=== PATIENT | male | born 1970 | race Caucasian/White ===

== ENCOUNTER 2016-11-27 16:03 | Inpatient (IN) | payer SELFPAY ==
[~2016-11-27] VITALS: Ht 182.9 cm; Wt 81.6 kg
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
[2016-11-27] MEDS ORDERED: Lidocaine 1% 10mg/ml/Epi 0.005mg/ml 30ml vial INJ ONE (16:11)
[2016-11-27] MEDS ORDERED: Morphine Sulfate 4mg/ml Inj ONE (16:15)
[2016-11-27] MEDS ORDERED: ceFAZolin sod 1 GM in NS 55 ML IVPB ONE (16:15)
[2016-11-27] MEDS ORDERED: Morphine Sulfate 4mg/ml Inj IVP ONE (16:30)
[2016-11-27 16:32] VITALS: BP 137/88
[2016-11-27 16:49] LABS: BASOPHILS % (AUTO) 2.2 % (0.0-2.0); EOSINOPHILS % (AUTO) 2.8 % (0.0-3.0); LYMPHOCYTES % (AUTO) 30.5 % (20.0-45.0); MEAN CORPUSCULAR HEMOGLOBIN 27.7 PG (27.0-31.0); MEAN CORPUSCULAR HGB CONC 32.7 G/DL (32.0-36.0); MEAN CORPUSCULAR VOLUME 85 FL (80-99); MEAN PLATELET VOLUME 7.4 FL (6.5-10.1); MONOCYTES % (AUTO) 10.8 % (1.0-10.0); NEUTROPHILS % (AUTO) 53.7 % (45.0-75.0); PLATELET COUNT 216 K/UL (150-450); RED BLOOD COUNT 4.43 M/UL (4.70-6.10); RED CELL DISTRIBUTION WIDTH 13.2 % (11.6-14.8); WHITE BLOOD COUNT 5.6 K/UL (4.8-10.8)
[2016-11-27] MEDS ORDERED: Lidocaine 1% Plain 30 ml INJ ONE (17:00)
[2016-11-27 17:02] LABS: INR 1.1 (0.9-1.1); PROTHROMBIN TIME 10.7 SEC (9.30-11.50)
[2016-11-27 17:10] LABS: ALANINE AMINOTRANSFERASE 13 U/L (3-41); ALBUMIN/GLOBULIN RATIO 1.5 (1.0-2.7); ANION GAP 14 (5-15); ASPARTATE AMINO TRANSFERASE 22 U/L (5-40); CALCIUM 9.3 mg/dL (8.6-10.2); CARBON DIOXIDE 26 mEQ/L (20-30); CHLORIDE 98 mEQ/L (98-107); GLOMERULAR FILTRATION RATE > 60 mL/min (>60); HEMOLYSIS 8; POTASSIUM 4.1 mEQ/L (3.4-4.9); SODIUM 138 mEQ/L (135-145); TOTAL PROTEIN 6.8 g/dL (6.6-8.7)
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
[2016-11-27 18:38] VITALS: BP 134/84
[2016-11-27] MEDS ORDERED: NKM (18:52)
[2016-11-27] MEDS ORDERED: Miralax 17gm pkt ORAL PRN (19:30)
[2016-11-27] MEDS ORDERED: Morphine Sulfate 2mg/ml Inj IVP PRN (19:30)
[2016-11-27] MEDS ORDERED: Zolpidem 5mg tab ORAL PRN (19:30)
[2016-11-27] MEDS ORDERED: Mylanta II UD 30ml ORAL PRN (19:30)
[2016-11-27] MEDS ORDERED: LORazepam Inj 2mg/ml 1ml IV PRN (19:30)
[2016-11-27 20:04] VITALS: BP 139/87
[2016-11-27 20:30] VITALS: BP 146/87
[2016-11-27] MEDS: ceFAZolin sod 1 GM in D5W 55 ML IVPB SCH (20:46)
[2016-11-27] MEDS ORDERED: Morphine Sulfate 4mg/ml Inj IM PRN (21:15)
[2016-11-27] MEDS: Heparin 5000 units/ml inj SUBQ SCH (21:35)
[2016-11-27] MEDS ORDERED: Morphine Sulfate 4mg/ml Inj IVP PRN (22:00)
[2016-11-27] MEDS ORDERED: Norco 5mg/325mg tab ORAL PRN (22:30)
[2016-11-28] VITALS (12 sets, daily range): BP systolic 123–154; BP diastolic 64–95
[2016-11-28] MEDS: ceFAZolin sod 1 GM in D5W 55 ML IVPB SCH ×2 (04:36→17:37)
[2016-11-28] MEDS ORDERED: Bacitracin 50000 Units Vial ONE (07:34)
[2016-11-28 07:56] LABS: BASOPHILS % (AUTO) 1.2 % (0.0-2.0); EOSINOPHILS % (AUTO) 2.9 % (0.0-3.0); LYMPHOCYTES % (AUTO) 32.8 % (20.0-45.0); MEAN CORPUSCULAR HGB CONC 32.8 G/DL (32.0-36.0); MEAN CORPUSCULAR VOLUME 85 FL (80-99); MEAN PLATELET VOLUME 7.4 FL (6.5-10.1); MONOCYTES % (AUTO) 11.3 % (1.0-10.0); NEUTROPHILS % (AUTO) 51.7 % (45.0-75.0); PLATELET COUNT 224 K/UL (150-450); RED BLOOD COUNT 4.39 M/UL (4.70-6.10); RED CELL DISTRIBUTION WIDTH 13.2 % (11.6-14.8); WHITE BLOOD COUNT 6.9 K/UL (4.8-10.8)
[2016-11-28] MEDS ORDERED: LR 1000ml ONE (08:00)
[2016-11-28] MEDS ORDERED: Propofol 10mg/ml 20ml IV ONE (08:00)
[2016-11-28] MEDS ORDERED: Lidocaine 1% MPF 10mg/ml 5ml ONE (08:00)
[2016-11-28] MEDS ORDERED: Sterile Water Irrig 1000ml IRRIG ONE (08:00)
[2016-11-28] MEDS ORDERED: Midazolam 2mg/2ml Inj ONE (08:00)
[2016-11-28] MEDS ORDERED: Alfentanil 2ml Inj ONE (08:00)
[2016-11-28] MEDS ORDERED: NS Irrig 1000ml ONE (08:00)
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
[2016-11-28 08:19] LABS: ALANINE AMINOTRANSFERASE 11 U/L (3-41); ALBUMIN/GLOBULIN RATIO 1.5 (1.0-2.7); ANION GAP 10 (5-15); ASPARTATE AMINO TRANSFERASE 18 U/L (5-40); CALCIUM 8.6 mg/dL (8.6-10.2); CARBON DIOXIDE 28 mEQ/L (20-30); CHLORIDE 104 mEQ/L (98-107); CREATININE 1.1 mg/dL (0.7-1.2); GLOMERULAR FILTRATION RATE > 60 mL/min (>60); HEMOLYSIS 5; SODIUM 142 mEQ/L (135-145); TOTAL PROTEIN 6.2 g/dL (6.6-8.7)
[2016-11-28] MEDS ORDERED: HYDROmorphone 1mg/ml Carpuject SUBQ PRN (08:30)
--- NOTE | 2016-11-28 08:35 | Anethesia Preoperative Eval ---
Anesthesia Pre-op PMH/ROS General Date of Evaluation: Nov 28, 2016 Time of Evaluation: 08:06 Anesthesiologist: Jennifer ASA Score: ASA 2 - Emergency Mallampati Score Class I : Soft palate, uvula, fauces, pillars visible Class II: Soft palate, uvula, fauces visible Class III: Soft palate, base of uvula visible Class IV: Only hard plate visible Mallampati Classification: Class II Surgeon: Ric Diagnosis: L Knee Infection Surgical Procedure: I and D L Knee Anesthesia History: none Family History: no anesthesia problems Allergies: Coded Allergies: No Known Allergies (Unverified , 11/27/16) Medications: see eMAR Past Medical History Hematology/Immune: Reports: anemia PSxH Narrative: L Tibial Fx Anesthesia Pre-op Phys. Exam Physician Exam Last Vital Signs Date Time Temp Pulse Resp B/P Pulse Ox O2 Delivery O2 Flow Rate FiO2 11/28/16 00:00 98.1 82 18 132/74 97 Room Air Constitutional: NAD Neurologic: CN 2-12 intact Cardiovascular: RRR Respiratory: CTA Gastrointestinal: S/NT/ND Airway Exam Mallampati Score: Class II MO: full ROM: full Teeth: intact Anesthesia Pre-op A/P Labs Hematology Test 11/27/16 16:30 11/28/16 07:15 White Blood Count 5.6 K/UL (4.8-10.8) 6.9 K/UL (4.8-10.8) Red Blood Count 4.43 M/UL (4.70-6.10) L 4.39 M/UL (4.70-6.10) L Hemoglobin 12.3 G/DL (14.2-18.0) L 12.3 G/DL (14.2-18.0) L Hematocrit 37.5 % (42.0-52.0) L 37.5 % (42.0-52.0) L Mean Corpuscular Volume 85 FL (80-99) 85 FL (80-99) Mean Corpuscular Hemoglobin 27.7 PG (27.0-31.0) 28.0 PG (27.0-31.0) Mean Corpuscular Hemoglobin Concent 32.7 G/DL (32.0-36.0) 32.8 G/DL (32.0-36.0) Red Cell Distribution Width 13.2 % (11.6-14.8) 13.2 % (11.6-14.8) Platelet Count 216 K/UL (150-450) 224 K/UL (150-450) Mean Platelet Volume 7.4 FL (6.5-10.1) 7.4 FL (6.5-10.1) Neutrophils (%) (Auto) 53.7 % (45.0-75.0) 51.7 % (45.0-75.0) Lymphocytes (%) (Auto) 30.5 % (20.0-45.0) 32.8 % (20.0-45.0) Monocytes (%) (Auto) 10.8 % (1.0-10.0) H 11.3 % (1.0-10.0) H Eosinophils (%) (Auto) 2.8 % (0.0-3.0) 2.9 % (0.0-3.0) Basophils (%) (Auto) 2.2 % (0.0-2.0) H 1.2 % (0.0-2.0) Coagulation Test 11/27/16 16:30 Prothrombin Time 10.7 SEC (9.30-11.50) Prothromb Time International Ratio 1.1 (0.9-1.1) Activated Partial Thromboplast Time 26 SEC (23-33) Chemistry Test 11/27/16 16:30 11/28/16 07:15 Sodium Level 138 mEQ/L (135-145) 142 mEQ/L (135-145) Potassium Level 4.1 mEQ/L (3.4-4.9) 4.0 mEQ/L (3.4-4.9) Chloride Level 98 mEQ/L (98-107) 104 mEQ/L (98-107) Carbon Dioxide Level 26 mEQ/L (20-30) 28 mEQ/L (20-30) Anion Gap 14 (5-15) 10 (5-15) Blood Urea Nitrogen 20 mg/dL (7-23) 19 mg/dL (7-23) Creatinine 1.0 mg/dL (0.7-1.2) 1.1 mg/dL (0.7-1.2) Estimat Glomerular Filtration Rate > 60 mL/min (>60) > 60 mL/min (>60) Glucose Level 130 mg/dL (74-106) H 112 mg/dL (74-106) H Calcium Level 9.3 mg/dL (8.6-10.2) 8.6 mg/dL (8.6-10.2) Total Bilirubin 0.3 mg/dL (0.0-1.2) < 0.2 mg/dL (0.0-1.2) Aspartate Amino Transf (AST/SGOT) 22 U/L (5-40) 18 U/L (5-40) Alanine Aminotransferase (ALT/SGPT) 13 U/L (3-41) 11 U/L (3-41) Alkaline Phosphatase 63 U/L (40-129) 59 U/L (40-129) Total Protein 6.8 g/dL (6.6-8.7) 6.2 g/dL (6.6-8.7) L Albumin 4.1 g/dL (3.5-5.2) 3.8 g/dL (3.5-5.2) Globulin 2.7 g/dL 2.4 g/dL Albumin/Globulin Ratio 1.5 (1.0-2.7) 1.5 (1.0-2.7) Risk Assessment & Plan Assessment: ASA 2E Status Change Before Surgery: No Pre-Antibiotics Dru Gram Ancef IV Given Within 1 Hr of Incision: Yes Time Given: 08:16 Josh Rodriguez MD Nov 28, 2016 08:35
[2016-11-28] MEDS ORDERED: LR 1000ml 1,000 ML IVLG SCH (08:39)
[2016-11-28] MEDS ORDERED: Metoclopramide 10mg/2ml Inj IVP PRN (08:45)
[2016-11-28] MEDS ORDERED: Midazolam 2mg/2ml Inj IVP PRN (08:45)
[2016-11-28] MEDS ORDERED: Labetalol 5mg/ml 20ml vial IV PRN (08:45)
[2016-11-28] MEDS ORDERED: Meperidine 25mg/ml Inj IV PRN (08:45)
[2016-11-28] MEDS ORDERED: LORazepam Inj 2mg/ml 1ml IV PRN (08:45)
[2016-11-28] MEDS ORDERED: Norco 7.5mg/325mg tab ORAL PRN (08:45)
[2016-11-28] MEDS ORDERED: Oxycodone/Acetaminophen 5-325 ORAL PRN (08:45)
[2016-11-28] MEDS ORDERED: Atropine Inj 1mg/10ml Syr IV PRN (08:45)
[2016-11-28] MEDS ORDERED: DiphenhydrAMINE 50mg/ml Inj IVP PRN (08:45)
[2016-11-28] MEDS ORDERED: Ketorolac 60mg Inj IV PRN (08:45)
[2016-11-28] MEDS ORDERED: Ketorolac 30mg Inj IV PRN (08:45)
[2016-11-28] MEDS ORDERED: fentaNYL 100 mcg/2 mL IV PRN (08:45)
[2016-11-28] MEDS ORDERED: Hydromorphone 0.5mg/0.5ml inj IVP PRN (08:45)
[2016-11-28] MEDS ORDERED: Norco 5mg/325mg tab ORAL PRN (08:45)
--- NOTE | 2016-11-28 08:49 | 48 Hour Post Anesthesia Eval ---
Post Anesthesia Evaluation Procedure: I and D L Knee Date of Evaluation: Nov 28, 2016 Time of Evaluation: 11:56 Blood Pressure Systolic: 125 0: 79 Pulse Rate: 74 Respiratory Rate: 18 Temperature (Fahrenheit): 98.6 O2 Sat by Pulse Oximetry: 100 Airway: patent Nausea: No Vomiting: No Pain Intensity: 0 Hydration Status: adequate Cardiopulmonary Status: Stable Mental Status/LOC: patient returned to baseline Follow-up Care/Observations: 0 Post-Anesthesia Complications: 0 Follow-up care needed: N/A Josh Rodriguez MD Nov 28, 2016 08:49
--- NOTE | 2016-11-28 08:49 | Immediate Post-Op Evaluation ---
Immediate Post-Op Evalulation Immediate Post-Op Evalulation Procedure: I and D L Knee Date of Evaluation: Nov 28, 2016 Time of Evaluation: 09:50 IV Fluids: 900 LR Blood Products: 0 Estimated Blood Loss: 10 Urinary Output: 0 Blood Pressure Systolic: 132 Blood Pressure Diastolic: 89 Pulse Rate: 79 Respiratory Rate: 16 O2 Sat by Pulse Oximetry: 100 Temperature (Fahrenheit): 98.6 Pain Score (1-10): 2 Nausea: No Vomiting: No Complications 0 Patient Status: awake, reacts, patent, none Hydration Status: adequate Dru Gram Ancef IV Given Within 1 Hr of Incision: Yes Time Given: 08:16 Josh Rodriguez MD Nov 28, 2016 08:49
[2016-11-28] MEDS ORDERED: Bupivacaine 0.5% Inj 30 ml vial INJ ONE (08:51)
--- NOTE | 2016-11-28 08:52 | Pre-Procedure Note/Attestation ---
Pre-Procedure Note/Attestation Complete Prior to Procedure Planned Procedure: left Procedure Narrative: Knee irrigation and debridment and closure Indications for Procedure Pre-Operative Diagnosis: left knee traumatic arthrotomy Attestation I attest that I discussed the nature of the procedure; its benefits; risks and complications; and alternatives (and the risks and benefits of such alternatives ), prior to the procedure, with the patient (or the patient's legal telephone claims representative). I attest that, if there was a reasonable possibility of needing a blood transfusion, the patient (or the patient's legal telephone claims representative) was given the [facility] standardized written summary, pursuant to the [place] Blood Safety Act ([place] Health and Safety Code # 1645, as amended). I attest that I re-evaluated the patient just prior to the surgery and that there has been no change in the patient's H&P, except as documented below: LORRI THOMAS Nov 28, 2016 08:52
[2016-11-28] MEDS: Docusate 100mg tablet ORAL SCH ×3 (09:00→17:54)
[2016-11-28] MEDS: Heparin 5000 units/ml inj SUBQ SCH ×2 (09:00→20:00)
[2016-11-28] MEDS: Acetaminophen 500mg (ES) tab ORAL SCH ×3 (09:00→17:54)
--- NOTE | 2016-11-28 09:37 | Brief Operative Note ---
Immediate Post Operative Note Operative Note Pre-op Diagnosis: left knee traumatic arthrotomy Procedure: Left knee debridment and wound closure Post-op Diagnosis: left knee deep complex laceration Surgeon: jaylene Anesthesiologist: Dane Anesthesia: general Specimen: yes Complications: none Condition: stable Fluids: Saline 100cc Estimated Blood Loss: minimal Drains: none Implant(s) used?: No LORRI THOMAS Nov 28, 2016 09:37
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
[2016-11-28] MEDS ORDERED: NS 550ML IV ONE (13:38)
[2016-11-28] MEDS ORDERED: Tubing IV Secondary IV ONE (13:38)
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
[2016-11-28] MEDS ORDERED: ceFAZolin sod 1 GM in D5W 55 ML IV SCH (14:00)
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
[2016-11-28] MEDS: Norco 5mg/325mg tab ORAL PRN (18:35)
[2016-11-29] VITALS: BP 141/93
[2016-11-29] MEDS: ceFAZolin sod 1 GM in D5W 55 ML IVPB SCH ×2 (00:08→08:11)
[2016-11-29] MEDS: Norco 5mg/325mg tab ORAL PRN ×2 (00:09→08:12)
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
[2016-11-29 04:00] VITALS: BP 133/71
[2016-11-29 07:42] LABS: BASOPHILS % (AUTO) 0.4 % (0.0-2.0); EOSINOPHILS % (AUTO) 0.4 % (0.0-3.0); LYMPHOCYTES % (AUTO) 23.3 % (20.0-45.0); MEAN CORPUSCULAR HEMOGLOBIN 28.6 PG (27.0-31.0); MEAN CORPUSCULAR HGB CONC 33.1 G/DL (32.0-36.0); MEAN CORPUSCULAR VOLUME 86 FL (80-99); MEAN PLATELET VOLUME 8.1 FL (6.5-10.1); MONOCYTES % (AUTO) 9.8 % (1.0-10.0); NEUTROPHILS % (AUTO) 66.1 % (45.0-75.0); PLATELET COUNT 207 K/UL (150-450); RED BLOOD COUNT 4.03 M/UL (4.70-6.10); RED CELL DISTRIBUTION WIDTH 13.5 % (11.6-14.8); WHITE BLOOD COUNT 8.5 K/UL (4.8-10.8)
[2016-11-29 07:54] LABS: ANION GAP 11 (5-15); CALCIUM 8.5 mg/dL (8.6-10.2); CARBON DIOXIDE 28 mEQ/L (20-30); CHLORIDE 103 mEQ/L (98-107); CREATININE 0.9 mg/dL (0.7-1.2); GLOMERULAR FILTRATION RATE > 60 mL/min (>60); HEMOLYSIS 0; POTASSIUM 4.1 mEQ/L (3.4-4.9); SODIUM 142 mEQ/L (135-145)
[2016-11-29 08:00] VITALS: BP 143/85
--- NOTE | 2016-11-29 08:03 | General Progress Note ---
Assessment/Plan Problem List: (1) Hand contusion ICD Codes: S60.229A - Contusion of unspecified hand, initial encounter SNOMED: 9464731 (2) Laceration of knee, complicated ICD Codes: S81.019A - Laceration without foreign body, unspecified knee, initial encounter SNOMED: 70095147, 720608201 Status: stable, progressing, tolerating diet Assessment/Plan ot pt diet wound care dc plan Subjective Constitutional: Reports: weakness Allergies: Coded Allergies: No Known Allergies (Unverified , 11/27/16) All Systems: reviewed and negative except above Subjective calm sleepy Objective Last 24 Hour Vital Signs Date Time Temp Pulse Resp B/P Pulse Ox O2 Delivery O2 Flow Rate FiO2 11/29/16 04:00 97.3 74 16 133/71 99 Room Air 11/29/16 00:00 97.9 90 18 141/93 98 Room Air 11/28/16 20:00 98.1 91 20 144/76 97 Room Air 11/28/16 16:00 97.5 81 17 126/86 96 Room Air 11/28/16 12:38 97.8 74 18 130/64 98 11/28/16 10:52 97.4 11 140/83 100 Nasal Cannula 3.0 11/28/16 10:45 97.4 70 11 140/83 100 Nasal Cannula 3.0 11/28/16 10:35 71 14 142/86 100 Nasal Cannula 3.0 11/28/16 10:20 87 13 154/95 100 Nasal Cannula 3.0 11/28/16 10:05 74 15 138/95 100 Nasal Cannula 3.0 11/28/16 09:50 74 12 123/84 100 Simple Mask 6.0 11/28/16 09:45 83 10 125/76 100 Simple Mask 6.0 11/28/16 09:40 74 18 100 11/28/16 09:39 98.6 79 16 132/89 100 Simple Mask 6.0 11/28/16 09:39 79 16 100 Intake and Output 11/28/16 11/29/16 19:00 07:00 Intake Total 600 ml 360 ml Balance 600 ml 360 ml Intake Oral 600 ml 360 ml # Voids 3 2 # Bowel Movements 2 Laboratory Tests 11/29/16 05:25: White Blood Count 8.5, Red Blood Count 4.03L, Hemoglobin 11.5L, Hematocrit 34.8L , Mean Corpuscular Volume 86, Mean Corpuscular Hemoglobin 28.6, Mean Corpuscular Hemoglobin Concent 33.1, Red Cell Distribution Width 13.5, Platelet Count 207, Mean Platelet Volume 8.1, Neutrophils (%) (Auto) 66.1, Lymphocytes (% ) (Auto) 23.3, Monocytes (%) (Auto) 9.8, Eosinophils (%) (Auto) 0.4, Basophils ( %) (Auto) 0.4, Sodium Level [Pending], Potassium Level [Pending], Chloride Level [Pending], Carbon Dioxide Level [Pending], Blood Urea Nitrogen [Pending], Creatinine [Pending], Estimat Glomerular Filtration Rate [Pending], Glucose Level [Pending], Calcium Level [Pending] Height (Feet): 6 Height (Inches): 0.00 Weight (Pounds): 180 General Appearance: alert EENT: normal ENT inspection Neck: normal alignment Cardiovascular: normal peripheral pulses, normal rate, regular rhythm Respiratory/Chest: chest wall non-tender, lungs clear, normal breath sounds Abdomen: normal bowel sounds, non tender, soft Extremities: normal inspection Edema: no edema noted Arm (L), no edema noted Arm (R), no edema noted Leg (L), no edema noted Leg (R), no edema noted Pedal (L), no edema noted Pedal (R), no edema noted Generalized Neurologic: responsive, motor weakness Skin: normal pigmentation, warm/dry DAVID BEST Nov 29, 2016 08:03
[2016-11-29] MEDS: Docusate 100mg tablet ORAL SCH (08:12)
[2016-11-29] MEDS: Heparin 5000 units/ml inj SUBQ SCH (08:21)
[2016-11-29] MEDS: Acetaminophen 500mg (ES) tab ORAL SCH (08:21)
--- NOTE | 2016-11-30 08:32 | Diagnostic Imaging Report ---
Indication: PAIN Technique: 3 views hand Comparison: none Findings: There are mild degenerative changes of the first interphalangeal joint and of the first carpometacarpal joint. No acute fractures. No dislocations. The remaining joint spaces are preserved. Impression: No acute process Degenerative changes, as described
--- NOTE | 2016-11-30 08:33 | Diagnostic Imaging Report ---
Indication: Left knee pain Technique: Left knee 2 views Comparison: None Findings: There is no acute fracture or dislocation. Skin kaleigh are now seen. There is soft tissue gas and joint effusion presumably postoperative. Tricompartment degenerative spurring is noted. Medial and patellofemoral compartment joint space narrowing is present. Radiodensities of the lateral tibial plateau are again noted. Impression: Postoperative left knee.
--- NOTE | 2016-12-01 10:29 | Discharge Summary ---
Discharge Summary Hospital Course Date of Admission Nov 27, 2016 at 17:30 Date of Discharge Nov 29, 2016 at 11:00 Admitting Diagnosis left knee injury [place] Franco is a 46 year old male who was admitted on Nov 27, 2016 at 17: 30 for Left Knee Injury Hospital Course dc summary # [id number] Discharge Condition Upon Discharge: stable Discharge Disposition Patient was discharged to Home with home health Discharge Diagnoses: Discharge Instructions Discharge Instructions Special Instructions I have been assigned to complete a D/C Summary on this account. I was not involved in the patient management Lila Whitehead NP ([place]) Dec 01, 2016 10:29
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
== END 2016-11-29 11:00 | disposition home health service (06) | DRG 581 ==
LOC: EDBD 16:03 → EMR 16:33 → 3E 17:30 → EDBEDREQ 18:58
PROC: 0S9D0ZZ Drainage of Left Knee Joint, Open Approach (ICD-10-PCS; principal; 2016-11-27)
PROC: 0JDP0ZZ Extraction of Left Lower Leg Subcutaneous Tissue and Fascia, Open Approach (ICD-10-PCS; 2016-11-28)
DX: S81.012A Laceration without foreign body, left knee, initial encounter (principal); D64.9 Anemia, unspecified; S60.222A Contusion of left hand, initial encounter; V23.4XXA Motorcycle driver injured in collision with car, pick-up truck or van in traffic accident, initial encounter; Y92.488 Other paved roadways as the place of occurrence of the external cause
CPT/HCPCS: 36415; 80048; 80053; 85025; 85610; 85730; 86850; 86900; 86901; 87070; 87075; 87205; 94003; 94150; J2250; J3490